=== PATIENT | female | born 1980 | race Caucasian/White ===

== ENCOUNTER 2024-02-02 16:28 | Emergency (ER) | payer SELFPAY ==
[2024-02-02 16:44] VITALS: BP 148/88; PULSE 90; RESP 20; TEMP 37; O2SAT 100
--- NOTE | 2024-02-02 17:21 | ED.DENTAL ---
HPI - Dental/Oral General Chief complaint: Dental/Oral Stated complaint: tooth inflamation Time Seen by Provider: 02/02/24 17:15 Source: patient, RN notes reviewed and old records reviewed Mode of arrival: ambulatory Limitations: no limitations History of Present Illness HPI Narrative: 43 year old female who presents to [facility] care with dental pain and left facial swelling since Saturday. Patient reports that tooth #18 broke off about a month ago and pain and swelling to face and neck started on Saturday with increase in swelling since yesterday. Patient reports that she was out of town over the weekend and just returned to area. Patient reports that she has been taking Ibuprofen for her pain, denies any fevers, difficulty with swallowing or with her breathing. Patient reports that she does not have a dentist. MD Complaint: tooth pain (swelling of left side of face and left neck) Location: Tooth # (18) Onset (ago): day(s) (7 days) Duration: constant Severity scale (1-10): 9 Exacerbating factors: other (eating) Treatment prior to arrival: oral analgesic (Ibuprofen) Related Data Allergies Allergy/AdvReac Type Severity Reaction Status Date / Time No Known Allergies Allergy Verified 02/02/24 16:57 Review of Systems Review of Systems: CONSTITUTIONAL: Denies fever, chills, or sweats. ENT: Denies rhinorrhea, congestion, sore throat, or otalgia. Reports dental pain to #18 tooth with swelling to left side of her face and neck CARDIOVASCULAR: Denies chest pain, palpitations, or edema. RESPIRATORY: Denies cough or dyspnea. SKIN: Denies rash or itching. MUSCULOSKELETAL: Denies myalgia. NEUROLOGIC: Denies headache All systems reviewed & are unremarkable except as noted in HPI and below PMFSH Social History Social History (Updated 02/03/24 @ 16:17 by Lidia España NP) Smoking status: Never smoker Alcohol intake: current Alcohol use details: social Substance use type: does not use Gender identity (if verbalized by the patient): Female Comments At time of signature, agree with nursing past medical, surgical, social and family history. There is no relevant family history pertinent to the presenting complaint Exam Narrative: GENERAL: Well-appearing, well-nourished, and in some acute distress. HEAD: Normocephalic, atraumatic. EYES: PERRLA and EOMI. ENT: Nares clear, no rhinorrhea or epistaxis. Mucous membranes moist, broken teeth #18 with left facial and neck swelling for 7 days, no trismus NECK: Supple. swelling to left side of face and into neck CHEST: Clear to auscultation. No respiratory distress. reports no difficulty with breathing or with swallowing HEART: Regular rate and rhythm. No murmur heard. Normal peripheral pulses.th swallowing SKIN: Warm, dry, no rash. NEURO: No focal deficits. Alert and oriented x3. Course Course Emergency Course: Patient is aware of diagnosis, understands and agrees to treatment plan. Anticipatory guidance given. Patient agrees to follow-up as directed and is aware of reasons to seek care at the emergency department. Portions of this record may have been created with voice recognition software Level of Care: Express Care Visit Vital Signs Vital signs: Vital Signs Temperature 37.0 C 02/02/24 16:44 Pulse Rate 90 02/02/24 16:44 Respiratory Rate 20 02/02/24 16:44 Blood Pressure 148/88 H 02/02/24 16:44 Pulse Oximetry 100 02/02/24 16:44 Oxygen Delivery Room Air 02/02/24 16:44 Temperature 37.0 C 02/02/24 16:44 Pulse Rate 90 02/02/24 16:44 Respiratory Rate 20 02/02/24 16:44 Blood Pressure 148/88 H 02/02/24 16:44 Pulse Oximetry 100 02/02/24 16:44 Oxygen Delivery Room Air 02/02/24 16:44 Reviewed MDM - Dental/Oral MDM Narrative Medical decision making narrative: Patients pain and complaint coupled with physical findings are consistent with dentalgia. There are no focal signs of space occupying lesions that are compromising to the air
== END 2024-02-02 17:34 | disposition home or self-care (01) ==
PROVIDERS: Emergency Provider Registered Nurse
DX: S02.5XXA Fracture of tooth (traumatic), initial encounter for closed fracture (principal); X58.XXXA Exposure to other specified factors, initial encounter; R22.0 Localized swelling, mass and lump, head
CPT/HCPCS: 99213; G0463